=== PATIENT | female | born 1950 | race Caucasian/White ===

== ENCOUNTER 2017-02-28 22:40 | Inpatient (IN) | payer OTHER ==
[~2017-02-28] VITALS: Ht 162.6 cm; Wt 161.2 kg
--- NOTE | ~2017-02-28 | EKG ---
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
--- NOTE | ~2017-02-28 | EKG ---
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
--- NOTE | ~2017-02-28 | HC ---
[facility] [place] [address] CONSULTATION Name: CATALINO DAVIS Room #: 202-P ADM IN M.R.#: [id number] Admission: 03/01/17 Attend Phys: Mathew Calero MD Discharge: Date of : 46 Report #: [id number] THIS REPORT FOR: //name// [facility] DATE OF SERVICE: 03/03/2017 INFECTIOUS DISEASE CONSULTATION ATTENDING PHYSICIAN: Obey Harvey M.D. REASON FOR EVALUATION: Complicated urinary tract infection with multiple resistant Escherichia coli, including extended spectrum beta lactamase production. HISTORY OF PRESENT ILLNESS: Chart reviewed, the patient examined. This is a 66-year-old white female with disabilities with previous right below-knee amputation, and apparently, a necrotizing-type infection. She mentioned to have MRSA treated multiple times, various infections including urinary tract infection and had developed some difficulty, was evaluated and was noted to have pyuria. Culture with growth of Escherichia coli as well as Proteus mirabilis. The former was multiple resistant including ESBL, most susceptible to amikacin, gentamicin as well as imipenem, piperacillin, tazobactam, trimethoprim sulfamethoxazole and tetracycline. The Proteus was resistant to quinolones and trimethoprim sulfamethoxazole and tetracycline. It is notable she was actually admitted due to progressive dyspnea with hypoxemia. She was confirmed to have a nmh-WP-zvfrmpcyy [place] and was started empirically on ceftriaxone. ALLERGIES: MUSHROOMS, GERMAN INHIBITORS, SULFA and LINEZOLID. CURRENT MEDICATIONS: Include torsemide, hydralazine, ceftriaxone, isosorbide mononitrate, fentanyl, insulin, montelukast, lorazepam, aspirin, amlodipine, atorvastatin, carvedilol, ipratropium and albuterol inhaler, pantoprazole, levothyroxine, p.r.n. analgesics and antiemetics. PAST MEDICAL HISTORY: Diabetes mellitus, hypothyroidism, does have known vasculopathy, coronary artery disease, history of COPD and previous below-knee amputation on the right. SOCIAL HISTORY: Nonsmoker. No ethanol. FAMILY HISTORY: Noncontributory. REVIEW OF SYSTEMS: Denies significant gastrointestinal-related complaints. She has had some weight gain. [facility] [address] [place] [address] CONSULTATION Name: CATALINO DAVIS Room #: 202-P [facility].#: [id number] Admission: 03/01/17 Attend Phys: Mathew Calero MD Discharge: Date of : 46 Report #: [id number] PHYSICAL EXAMINATION: GENERAL: She is alert, cooperative, in mild distress. She is not encephalopathic. She appears to be reasonably well nourished. VITAL SIGNS: Temperature 98.6, pulse of 59, respirations 18 and blood pressure 131/63. SKIN: Warm, dry. No rashes. HEENT: Unremarkable. Nasal cannula oxygen in place. NECK: Supple. LUNGS: Diminished, otherwise clear breath sounds. HEART: Regular, distant. I do not appreciate a murmur. ABDOMEN: Soft, nontender and nondistended. EXTREMITIES: No cyanosis. A well-healed BKA stump. GENITOURINARY: Deferred. RECTAL: Deferred. LABORATORY DATA: Urine culture as noted above. White count 69.4, H and H 8.1 and 24.3 and platelets of 265,000. Electrolytes: Sodium 139, potassium 4.8, chloride 102, bicarbonate is 27, BUN and creatinine 46 and 1.5 and estimated GFR of 35. Urinalysis, 6-15 white cells and greater than 30 bacteria. ASSESSMENT AND PLAN: Complicated urinary tract infection. The patient has multiple infectious complications. We will adjust antimicrobial therapy with piperacillin and tazobactam based on susceptibilities and see how she does clinically, perhaps repeat the U/A in 48-72 hours, prefer course if possible. Dr. Ron to follow. <ELECTRONICALLY SIGNED> By: Peter Farrar MD 03/04/17 0756 1553 2314 Peter Farrar MD /nt
--- NOTE | ~2017-02-28 | CATHLAB ---
[facility] [address] [place] [address] INVASIVE PROCEDURE REPORT Name: SUSAN,CATALINO L Room #: 202-P [facility] IN [facility]#: [id number] Admission: 03/01/17 Attend Phys: Mathew Calero, Discharge: Date of : 46 Date of Service: 03/01/17 1721 Report #: [id number] THIS REPORT FOR: //name// CC: Obey Miller DATE OF SERVICE: 03/01/2017 PROCEDURE: Left heart coronary angiography. INDICATIONS: Myocardial infarction. DESCRIPTION OF PROCEDURE: The potential benefits and risks of the procedure were discussed at length with the patient who understood. Full written and informed consent was obtained. The patient was brought into the catheterization suite where her right groin was prepped and draped in a sterile fashion. She was sedated with intravenous Versed, 1% Xylocaine was used as local anesthetic. A 6-Kiswahili sheath was placed in the right femoral artery by the modified Seldinger technique. Left heart catheterization was performed with a 6-Kiswahili angled pigtail catheter. A single plain ventriculogram was performed in the MARY view. Pullback gradients were measured across the aortic valve. Selective coronary angiography was performed with a 6-Kiswahili left and right 4 cm Marilynn coronary catheter. All diagnostic catheters removed. Hand injection was performed to the right groin sheath with placement of a Mynx device upon removal of the sheath. The patient remained in excellent condition at the conclusion of the procedure with good right groin hemostasis and intact distal pulses. RESULTS: LEFT HEART HEMODYNAMICS: 1. Left ventricular systolic pressure of 140. 2. Left ventricular end diastolic pressure of 35. 3. Aortic valve, no gradient was present on pullback across the aortic valve, central aortic pressure of 140/70. ANGIOGRAPHY: LEFT VENTRICULOGRAM: Ventriculography demonstrated normal global left ventricular systolic function, possible mild apical hypokinesis. SELECTIVE CORONARY ANGIOGRAPHY: 1. Left main: Left main was large in caliber and normal. 2. Left anterior descending: Left anterior descending extended to the inferoapex. There was a moderate 50% proximal LAD stenosis, mild to modest diffuse plaquing throughout the majority of the LAD, which extended to the inferoapex. The LAD gave rise to a proximal diagonal branch. This vessel exhibited a 50% proximal stenosis. This vessel was relatively small in caliber. 3. The circumflex was large and dominant. The circumflex gave rise to multiple [facility] [address] [place] [address] INVASIVE PROCEDURE REPORT Name: CATALINO DAVIS Room #: 202-P [facility] IN ..#: [id number] Admission: 03/01/17 Attend Phys: Mathew Calero, Discharge: Date of : 46 Date of Service: 03/01/17 1721 Report #: [id number] distally arising marginal branches. The first marginal branch, however, exhibited a subtotal narrowing. There were faint left to left collaterals to this distal vessel. 4. The right coronary was moderate in size and nondominant and exhibited a 70% midvessel stenosis, vessel was very small in caliber beyond the stensis. SUMMARY: 1. Mild left ventricular dysfunction, EF 45-50%. 2. Normal left main. 3. Moderate left anterior descending disease. 4. The circumflex was dominant. The first marginal branch was occluded and filled by apot-sg-zfjz collateralization. 5. The right coronary was small, nondominant and diffusely diseased. Based on this study, continued pharmacologic therapy and aggressive risk factor modification is recommended. <ELECTRONICALLY SIGNED> By: Renato Novoa MD, FACC 03/04/17 0848 1721 2241 Renato Novoa MD, FACC /nt
--- NOTE | ~2017-02-28 | 2DMMODE ---
[facility] [address] [place] [address] 2 D/M-MODE ECHOCARDIOGRAM Name: CATALINO DAVIS Room #: 202-P ADM IN M.R.#: [id number] Admission: 03/01/17 Attend Phys: Obey Aleman Discharge: Date of : 46 Date of Service: 03/01/17 1221 Report #: [id number] THIS REPORT FOR: //name// APPROVED REPORT Study performed: 03/01/2017 08:32:00 EXAM: Comprehensive 2D, Doppler, and color-flow Echocardiogram Patient Location: Bedside Room #: 202 Status: routine Other Information Study Quality: Poor Indications Dyspnea Hypertension/HDD Echo Enhancing Agent Indication: Endocardial border delineation Agent(s) / Amount(s) Used: Definity 2 cc 2D Dimensions LVEF(%): 58.87 (>50%) IVSd: 14.58 (7-11mm) LVOT Diam: 20.85 (18-24mm) LVDd: 51.38 mm PWd: 14.43 (7-11mm) Ascending Ao: 30.38 (22-36mm) LVDs: 35.27 (25-40mm) Aortic Root: 34.18 mm Childs's LVEF: 58.87 % Aortic Valve LVOT Max P.08 mmHg LVOT Mean P.73 mmHg LVOT Max V: 1.01 m/s LVOT Mean V: 0.80 m/s LVOT V1 VTI: 23.14 cm SV (LVOT): 78.94 mL Mitral Valve E/A Ratio: 0.9 MV Decel. Time: 270.21 ms MV E Max Ayad.: 1.30 m/s MV A Ayad.: 1.39 m/s [facility] [place] [address] [address] 2 D/M-MODE ECHOCARDIOGRAM Name: CATALINO DAVIS Abdelrahman Room #: 202-P [facility] IN [facility]#: [id number] Admission: 03/01/17 Attend Phys: Obey Aleman Discharge: Date of : 46 Date of Service: 03/01/17 1221 Report #: [id number] MV PHT: 78.36 ms IVRT: 147.64 ms Pulmonary Valve PV Peak Ayad.: 1.14 m/s PV Peak Gr.: 5.19 mmHg Tricuspid Valve TR Peak Ayad.: 2.56 m/s TR Peak Gr.: 26.29 mmHg Left Ventricle The left ventricle is normal size. Mild concentric left ventricular hypertrophy. The left ventricular systolic function is normal. The left ventricular ejection fraction is within the normal range. LVEF is 55-60%. Grade I - abnormal relaxation pattern. Right Ventricle The right ventricle is normal size. The right ventricular systolic function is normal. Atria The left atrium size is normal. The right atrium size is normal. Aortic Valve The aortic valve is not well visualized. Aortic valve is calcified. Trace aortic regurgitation. By visual assessment there appears to be mild Aortic stenosis. Mitral Valve The mitral valve is normal in structure. Trace to mild mitral regurgitation. No evidence of mitral valve stenosis. Tricuspid Valve The tricuspid valve is normal in structure. There is trace tricuspid regurgitation. The right atrial pressure is estimated at 25 mmHg. Plus the right atrial pressure. Pulmonic Valve The pulmonary valve is normal in structure. Trace pulmonic regurgitation. Great Vessels The aortic root is normal in size. IVC is not well visualized. [facility] [place] [address] 2 D/M-MODE ECHOCARDIOGRAM Name: CATALINO DAVIS Room #: 202-P [facility] IN M.R.#: [id number] Admission: 03/01/17 Attend Phys: Obey Aleman Discharge: Date of : 46 Date of Service: 03/01/17 1221 Report #: [id number] Pericardium There is no pericardial effusion. <Conclusion> The left ventricle is normal size. LVEF is 55-60%. The aortic valve is not well visualized. Aortic valve is calcified. Trace aortic regurgitation. The mitral valve is normal in structure. Trace to mild mitral regurgitation. The tricuspid valve is normal in structure. There is trace tricuspid regurgitation. The right atrial pressure is estimated at 25 mmHg. Plus the right atrial pressure. The pulmonary valve is normal in structure. Trace pulmonic regurgitation. <ELECTRONICALLY SIGNED> By: Agustin Sotelo MD 03/01/17 1221 1221 122 Agustin Sotelo MD /INF
[2017-02-28 22:41] VITALS: BP 190/94
[2017-02-28 22:58] LABS: ABG SAMPLE TYPE ARTERIAL; BE(vivo) 0.4 mmol/L (-2 to +3); HCO3 24.6 mmol/L (22.0-26.0); LACTATE 1.41 mmol/L (0.5-2.0); O2(CT) 14.5 mL/dL (15.0-23.0); O2Hb 95.6 % (92.0-98.0); PCO2 38.3 mmHg (35.0-45.0); PO2 77.7 mmHg (80.0-100.0); STICK SITE R.RADIAL; pH 7.426 (7.360-7.450); sO2 95.8 % (92.0-98.0); tCO2 25.8 mmol/L (24.0-30.0)
[2017-02-28 23:00] LABS: HEMATOCRIT 31.5 % (37.0-47.0); HEMOGLOBIN 10.1 gm/dL (12.0-15.0); MCH 29.1 pg (26.0-34.0); MCHC 32.2 g/dL (28.0-37.0); MCV 90.5 fL (80.0-100.0); PLATELET COUNT 319 thou/uL (150-400); RBC 3.48 mil/uL (4.20-5.00); RDW 15.3 % (10.5-14.5); WBC 17.1 thou/uL (4.0-11.0)
[2017-02-28 23:08] LABS: CALCIUM 8.2 mg/dL (8.5-10.1); CREATININE 1.5 mg/dL (0.6-1.0); POTASSIUM 5.2 mmol/L (3.5-5.1)
[2017-02-28 23:13] LABS: MANUAL DIFF YES
[2017-02-28 23:20] LABS: TROPONIN-I 0.17 ng/mL (<0.04-0.07)
[2017-02-28] MEDS ORDERED: OXYCODONE HCL10 MG PO (23:38)
[2017-02-28] MEDS ORDERED: ONDANSETRON HCL4 M2 PO (23:38)
[2017-02-28] MEDS ORDERED: NYAMYC15 GM TOP (23:38)
[2017-02-28] MEDS ORDERED: BUTALBIT-ACETA1 EACH PO (23:38)
[2017-02-28] MEDS ORDERED: LANTUS SUBQ (23:39)
[2017-02-28] MEDS ORDERED: LASIX 20 MG TAB20 MG PO (23:39)
[2017-02-28] MEDS ORDERED: NOVOLOG100 UNIT/1 SUBQ (23:39)
[2017-02-28] MEDS ORDERED: FENTANYL PA25 MCG/HR TRANSDERM (23:39)
[2017-02-28] MEDS ORDERED: LEVOTHYROXINE0.2 M1 PO (23:39)
[2017-02-28] MEDS ORDERED: ATORVASTATIN CA40 MG PO (23:40)
[2017-02-28] MEDS ORDERED: AMLODIPINE BESY10 MG PO (23:40)
[2017-02-28] MEDS ORDERED: CARVEDILOL12.5 MG PO (23:40)
[2017-02-28] MEDS ORDERED: PANTOPRAZOLE SO40 M1 PO (23:40)
[2017-02-28] MEDS ORDERED: HYDRALAZINE 5050 MG PO (23:40)
[2017-02-28] MEDS ORDERED: ATIVAN0.5 MG PO (23:40)
[2017-02-28] MEDS ORDERED: ZANAFLEX4 MG PO (23:41)
[2017-02-28] MEDS ORDERED: SINGULAIR 10 MG10 M1 PO (23:41)
[2017-02-28] MEDS ORDERED: MIRALAX17 GM PO (23:42)
[2017-02-28] MEDS ORDERED: ASPIR 8181 MG PO (23:43)
[2017-02-28] MEDS ORDERED: TYLENOL325 MG PO (23:43)
[2017-02-28 23:44] LABS: METAMYELOCYTES 1 %; TOTAL CELL COUNT 100
[2017-03-01] VITALS (10 sets, daily range): BP systolic 144–180; BP diastolic 61–81
[2017-03-01 06:13] LABS: CALCIUM 7.9 mg/dL (8.5-10.1); CREATININE 1.5 mg/dL (0.6-1.0); POTASSIUM 4.9 mmol/L (3.5-5.1)
[2017-03-01 06:19] LABS: CHOLESTEROL 144 mg/dL (<200); HDL CHOLESTEROL 46 mg/dL (>40); LDL CHOLESTEROL 75 mg/dL (<100); TC:HDL 3.1 Ratio (Not establshd); TRIGLYCERIDE 117 mg/dL (<150); VLDL 23 mg/dL (<40)
[2017-03-01 06:22] LABS: SERUM ASSESSMENT Clear
[2017-03-01 10:47] LABS: URINE BILIRUBIN NEGATIVE (Negative); URINE BLOOD NEGATIVE (Negative); URINE COLOR YELLOW; URINE GLUCOSE-RANDOM* NEGATIVE (Negative); URINE KETONES NEGATIVE (Negative); URINE LEUKOCYTES-REFLEX 1+ (Negative); URINE PROTEIN (DIPSTICK) 2+ (Negative); URINE UROBILINOGEN 0.2 E.U./dl (0.2-1.0)
[2017-03-01 13:08] LABS: SQUAMOUS 0-3 Few /LPF (0-3); URINE RBC None Seen /HPF (0-2); URINE WBC-REFLEX 6-15 Few /HPF (0-5)
[2017-03-01 13:09] LABS: CASTS None Seen /LPF (None Seen); CRYSTALS None Seen /LPF (None Seen)
[2017-03-02 03:19] LABS: GLYCOHEMOGLOBIN (HGB A1C) 6.3 % (4.8-5.6)
[2017-03-02 04:30] VITALS: BP 152/65
[2017-03-02 05:51] LABS: HEMATOCRIT 26.2 % (37.0-47.0); HEMOGLOBIN 8.6 gm/dL (12.0-15.0); MCH 29.6 pg (26.0-34.0); MCHC 32.9 g/dL (28.0-37.0); RBC 2.92 mil/uL (4.20-5.00); RDW 15.3 % (10.5-14.5); WBC 10.4 thou/uL (4.0-11.0)
[2017-03-02 06:00] LABS: CALCIUM 7.7 mg/dL (8.5-10.1); CREATININE 1.5 mg/dL (0.6-1.0); POTASSIUM 4.4 mmol/L (3.5-5.1)
[2017-03-02 08:29] VITALS: BP 168/81
[2017-03-02 12:10] VITALS: BP 158/70
[2017-03-02 16:12] VITALS: BP 138/65
[2017-03-02 19:11] VITALS: BP 152/72
[2017-03-03 02:57] VITALS: BP 142/62
[2017-03-03 03:02] LABS: HEMATOCRIT 24.3 % (37.0-47.0); HEMOGLOBIN 8.1 gm/dL (12.0-15.0); MCH 29.7 pg (26.0-34.0); MCHC 33.2 g/dL (28.0-37.0); MCV 89.5 fL (80.0-100.0); RBC 2.71 mil/uL (4.20-5.00); RDW 14.8 % (10.5-14.5); WBC 9.4 thou/uL (4.0-11.0)
[2017-03-03 03:15] LABS: CALCIUM 7.5 mg/dL (8.5-10.1); CREATININE 1.5 mg/dL (0.6-1.0); POTASSIUM 4.8 mmol/L (3.5-5.1)
[2017-03-03 07:50] VITALS: BP 161/61
[2017-03-03 11:25] VITALS: BP 131/63
[2017-03-03 15:30] VITALS: BP 150/65
[2017-03-03 19:47] VITALS: BP 147/61
[2017-03-04 04:12] LABS: ABSOLUTE NEUTROPHILS 6.1 thou/uL (1.4-8.2); BASOPHILS 0.9 % (0.0-2.0); EOSINOPHILS 8.3 % (0.0-3.0); HEMATOCRIT 25.1 % (37.0-47.0); HEMOGLOBIN 8.3 gm/dL (12.0-15.0); LYMPHOCYTES 12.2 % (24.0-44.0); MANUAL DIFF NO; MCH 29.6 pg (26.0-34.0); MCHC 33.1 g/dL (28.0-37.0); MCV 89.7 fL (80.0-100.0); MONOCYTES 8.5 % (1.0-8.0); PLATELET COUNT 283 thou/uL (150-400); POLYS 70.1 % (36.0-66.0); RDW 14.9 % (10.5-14.5); WBC 8.7 thou/uL (4.0-11.0)
[2017-03-04 04:23] LABS: CALCIUM 7.6 mg/dL (8.5-10.1); CREATININE 1.6 mg/dL (0.6-1.0); POTASSIUM 4.5 mmol/L (3.5-5.1)
[2017-03-04 05:44] VITALS: BP 154/59
[2017-03-04] MEDS ORDERED: IMDUR 60 MG TAB60 M1 PO (09:29)
[2017-03-04] MEDS ORDERED: HUMALOG100 UNIT/1 SUBQ (09:29)
[2017-03-04] MEDS ORDERED: HYDRALAZINE 2525 MG PO (09:29)
[2017-03-04] MEDS ORDERED: LANTUS100 UNIT/M SUBQ (09:29)
[2017-03-04] MEDS ORDERED: TORSEMIDE20 MG PO (09:29)
[2017-03-04] MEDS ORDERED: CARVEDILOL25 MG PO (09:29)
[2017-03-04 14:55] LABS: URINE BILIRUBIN NEGATIVE (Negative); URINE BLOOD NEGATIVE (Negative); URINE COLOR YELLOW; URINE GLUCOSE-RANDOM* NEGATIVE (Negative); URINE KETONES NEGATIVE (Negative); URINE LEUKOCYTES-REFLEX NEGATIVE (Negative); URINE PROTEIN (DIPSTICK) 2+ (Negative); URINE SPECIFIC GRAVITY 1.015 (1.003-1.035); URINE UROBILINOGEN 0.2 E.U./dl (0.2-1.0)
== END 2017-03-04 16:19 | DRG 871 ==
LOC: ER 22:40 → EROBS 03-01 00:04 → 2N 03-01 00:04
PROVIDERS: Emergency Medicine; Hospitalist; Internal Medicine Endocrinology, Diabetes & Metabolism; Nurse Practitioner Acute Care; Specialist
DX: A41.9 Sepsis, unspecified organism (principal); I21.4 Non-ST elevation (NSTEMI) myocardial infarction; I50.33 Acute on chronic diastolic (congestive) heart failure; N39.0 Urinary tract infection, site not specified; I13.0 Hypertensive heart and chronic kidney disease with heart failure and stage 1 through stage 4 chronic kidney disease, or unspecified chronic kidney disease; Z68.44 Body mass index [BMI] 60.0-69.9, adult; E03.9 Hypothyroidism, unspecified; N18.3 Chronic kidney disease, stage 3 (moderate); I87.8 Other specified disorders of veins; E66.01 Morbid (severe) obesity due to excess calories; J44.9 Chronic obstructive pulmonary disease, unspecified; E11.51 Type 2 diabetes mellitus with diabetic peripheral angiopathy without gangrene; E78.5 Hyperlipidemia, unspecified; G47.00 Insomnia, unspecified; G47.33 Obstructive sleep apnea (adult) (pediatric); G89.4 Chronic pain syndrome; I25.10 Atherosclerotic heart disease of native coronary artery without angina pectoris; F41.8 Other specified anxiety disorders; E11.22 Type 2 diabetes mellitus with diabetic chronic kidney disease; Z79.891 Long term (current) use of opiate analgesic; Z79.82 Long term (current) use of aspirin; Z79.899 Other long term (current) drug therapy; Z88.2 Allergy status to sulfonamides; Z91.018 Allergy to other foods; Z88.8 Allergy status to other drugs, medicaments and biological substances; Z89.511 Acquired absence of right leg below knee; Z98.61 Coronary angioplasty status; Z89.422 Acquired absence of other left toe(s); Z80.0 Family history of malignant neoplasm of digestive organs
CPT/HCPCS: 10081

== ENCOUNTER 2017-03-17 23:12 | Inpatient (IN) | payer OTHER ==
[~2017-03-17] VITALS: Ht 162.6 cm; Wt 162.8 kg
--- NOTE | ~2017-03-17 | EKG ---
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
--- NOTE | ~2017-03-17 | EKG ---
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 03/24/17 1254 11 11 Renato Novoa MD, [facility] /EPI
[~2017-03-17 23:12] MED LIST: AMLODIPINE BESY10 MG PO; ASPIR 8181 MG PO; ATIVAN0.5 MG PO; ATORVASTATIN CA40 MG PO; BUTALBIT-ACETA1 EACH PO; CARVEDILOL12.5 MG PO; CARVEDILOL25 MG PO; FENTANYL PA25 MCG/HR TRANSDERM; HUMALOG100 UNIT/1 SUBQ; HYDRALAZINE 2525 MG PO; HYDRALAZINE 5050 MG PO; IMDUR 60 MG TAB60 M1 PO; LANTUS SUBQ; LANTUS100 UNIT/M SUBQ; LASIX 20 MG TAB20 MG PO; LEVOTHYROXINE0.2 M1 PO; MIRALAX17 GM PO; NOVOLOG100 UNIT/1 SUBQ; NYAMYC15 GM TOP; ONDANSETRON HCL4 M2 PO; OXYCODONE HCL10 MG PO; PANTOPRAZOLE SO40 M1 PO; SINGULAIR 10 MG10 M1 PO; TORSEMIDE20 MG PO; TYLENOL325 MG PO; ZANAFLEX4 MG PO
[2017-03-17 23:28] LABS: HEMATOCRIT 32.3 % (37.0-47.0); HEMOGLOBIN 10.3 gm/dL (12.0-15.0); MCH 28.8 pg (26.0-34.0); MCV 90.1 fL (80.0-100.0); PLATELET COUNT 365 thou/uL (150-400); RBC 3.58 mil/uL (4.20-5.00); RDW 15.7 % (10.5-14.5); WBC 13.7 thou/uL (4.0-11.0)
[2017-03-17] MEDS ORDERED: LANTUS100 UNIT/M SUBQ (23:33)
[2017-03-17] MEDS ORDERED: SINGULAIR 10 MG10 M1 PO (23:36)
[2017-03-17 23:38] LABS: CALCIUM 7.2 mg/dL (8.5-10.1); POTASSIUM 5.1 mmol/L (3.5-5.1)
[2017-03-17] MEDS ORDERED: DOXYCYCLINE 10100 M1 PO (23:38)
[2017-03-17] MEDS ORDERED: ATIVAN0.5 MG PO (23:38)
[2017-03-17] MEDS ORDERED: NASAL SPRAY30 ML NS (23:39)
[2017-03-17] MEDS ORDERED: FENTANYL PA25 MCG/HR TOP (23:40)
[2017-03-17 23:42] LABS: ABG SAMPLE TYPE ARTERIAL; BE(vivo) -0.2 mmol/L (-2 to +3); HCO3 24.7 mmol/L (22.0-26.0); LACTATE 3.25 mmol/L (0.5-2.0); O2(CT) 15.7 mL/dL (15.0-23.0); O2Hb 96.8 % (92.0-98.0); PCO2 41.5 mmHg (35.0-45.0); PO2 101.5 mmHg (80.0-100.0); Pressure Support 14 cm H20; STICK SITE L.RADIAL; pH 7.393 (7.360-7.450); sO2 97.6 % (92.0-98.0)
[2017-03-17] MEDS ORDERED: ROXICODONE5 M2 PO (23:42)
[2017-03-17 23:50] LABS: MANUAL DIFF YES; TROPONIN-I 0.05 ng/mL (<0.04-0.07)
[2017-03-18 00:26] LABS: ABSOLUTE NEUTROPHILS 11.6 thou/uL (1.4-8.2); ANISOCYTOSIS SLIGHT; MACROCYTES SLIGHT; TOTAL CELL COUNT 100
[2017-03-18 01:46] VITALS: BP 131/58
[2017-03-18 03:07] VITALS: BP 142/52
[2017-03-18 05:45] LABS: URINE BILIRUBIN NEGATIVE (Negative); URINE BLOOD NEGATIVE (Negative); URINE COLOR YELLOW; URINE GLUCOSE-RANDOM* NEGATIVE (Negative); URINE KETONES NEGATIVE (Negative); URINE LEUKOCYTES-REFLEX NEGATIVE (Negative); URINE PROTEIN (DIPSTICK) 1+ (Negative); URINE UROBILINOGEN 0.2 E.U./dl (0.2-1.0)
[2017-03-18 05:53] LABS: SQUAMOUS 0-3 Few /LPF (0-3)
[2017-03-18 05:54] LABS: CASTS None Seen /LPF (None Seen); CRYSTALS None Seen /LPF (None Seen); URINE RBC 0-2 Rare /HPF (0-2); URINE WBC-REFLEX None Seen /HPF (0-5)
[2017-03-18 07:54] VITALS: BP 109/57
[2017-03-18 10:58] VITALS: BP 140/63
[2017-03-18 15:28] VITALS: BP 146/64
[2017-03-18 19:16] VITALS: BP 175/61
[2017-03-19 00:16] VITALS: BP 115/42
[2017-03-19 04:19] VITALS: BP 149/61
[2017-03-19 06:24] LABS: ABSOLUTE NEUTROPHILS 6.2 thou/uL (1.4-8.2); HEMATOCRIT 25.6 % (37.0-47.0); HEMOGLOBIN 8.5 gm/dL (12.0-15.0); LYMPHOCYTES 16.2 % (24.0-44.0); MCH 29.8 pg (26.0-34.0); MCHC 33.4 g/dL (28.0-37.0); MCV 89.3 fL (80.0-100.0); MONOCYTES 6.5 % (1.0-8.0); POLYS 69.3 % (36.0-66.0); RBC 2.87 mil/uL (4.20-5.00); RDW 15.2 % (10.5-14.5)
[2017-03-19 06:28] LABS: PLATELET COUNT 264 thou/uL (150-400)
[2017-03-19 06:29] LABS: MANUAL DIFF NO
[2017-03-19 06:36] LABS: CALCIUM 6.8 mg/dL (8.5-10.1); CREATININE 1.7 mg/dL (0.6-1.0); POTASSIUM 4.4 mmol/L (3.5-5.1)
[2017-03-19 07:50] VITALS: BP 128/48
[2017-03-19 11:12] VITALS: BP 132/43
[2017-03-19 15:58] VITALS: BP 135/52
[2017-03-19 19:03] VITALS: BP 153/67
[2017-03-20 04:28] VITALS: BP 153/74
[2017-03-20 06:21] LABS: HEMATOCRIT 25.4 % (37.0-47.0); HEMOGLOBIN 8.3 gm/dL (12.0-15.0); MCH 29.3 pg (26.0-34.0); MCHC 32.8 g/dL (28.0-37.0); MCV 89.4 fL (80.0-100.0); PLATELET COUNT 246 thou/uL (150-400); RBC 2.84 mil/uL (4.20-5.00); RDW 14.9 % (10.5-14.5); WBC 6.6 thou/uL (4.0-11.0)
[2017-03-20 06:23] LABS: MANUAL DIFF YES
[2017-03-20 06:38] LABS: CALCIUM 7.2 mg/dL (8.5-10.1); CREATININE 1.6 mg/dL (0.6-1.0); POTASSIUM 4.7 mmol/L (3.5-5.1)
[2017-03-20 07:14] LABS: ABSOLUTE NEUTROPHILS 6.1 thou/uL (1.4-8.2); TOTAL CELL COUNT 100
[2017-03-20 07:15] LABS: ANISOCYTOSIS SLIGHT
[2017-03-20 09:00] VITALS: BP 145/62
[2017-03-20 11:37] VITALS: BP 164/63
[2017-03-20 15:47] VITALS: BP 137/66
[2017-03-20 20:15] VITALS: BP 122/69
[2017-03-21 05:35] VITALS: BP 152/67
[2017-03-21 06:01] LABS: CALCIUM 6.7 mg/dL (8.5-10.1); CREATININE 1.8 mg/dL (0.6-1.0); POTASSIUM 4.8 mmol/L (3.5-5.1)
[2017-03-21 08:40] VITALS: BP 159/71
[2017-03-21 13:40] VITALS: BP 153/71
[2017-03-21 18:50] VITALS: BP 141/65
[2017-03-21 19:20] VITALS: BP 147/68
[2017-03-22 04:58] VITALS: BP 147/70
[2017-03-22 06:11] LABS: HEMATOCRIT 23.7 % (37.0-47.0); MCH 29.7 pg (26.0-34.0); MCHC 33.6 g/dL (28.0-37.0); MCV 88.6 fL (80.0-100.0); PLATELET COUNT 221 thou/uL (150-400); RBC 2.68 mil/uL (4.20-5.00); RDW 15.2 % (10.5-14.5); WBC 7.6 thou/uL (4.0-11.0)
[2017-03-22 06:13] LABS: MANUAL DIFF YES
[2017-03-22 06:25] LABS: CALCIUM 6.9 mg/dL (8.5-10.1); CREATININE 1.9 mg/dL (0.6-1.0); POTASSIUM 4.6 mmol/L (3.5-5.1)
[2017-03-22 07:24] LABS: ABSOLUTE NEUTROPHILS 6.8 thou/uL (1.4-8.2); METAMYELOCYTES 1 %; TOTAL CELL COUNT 100
[2017-03-22 07:25] LABS: ANISOCYTOSIS SLIGHT
[2017-03-22 08:09] VITALS: BP 156/74
[2017-03-22 12:11] VITALS: BP 132/63
[2017-03-22 15:06] LABS: c-ANCA <1:20 titer (Neg:<1:20); p-ANCA <1:20 titer (Neg:<1:20)
[2017-03-22 15:42] VITALS: BP 153/58
[2017-03-23 04:00] VITALS: BP 150/73
[2017-03-23 05:53] LABS: HEMOGLOBIN 8.2 gm/dL (12.0-15.0); MCH 29.2 pg (26.0-34.0); MCHC 32.8 g/dL (28.0-37.0); PLATELET COUNT 210 thou/uL (150-400); RBC 2.81 mil/uL (4.20-5.00); RDW 15.3 % (10.5-14.5); WBC 8.1 thou/uL (4.0-11.0)
[2017-03-23 06:01] LABS: MANUAL DIFF YES
[2017-03-23 06:23] LABS: CALCIUM 6.7 mg/dL (8.5-10.1); POTASSIUM 4.8 mmol/L (3.5-5.1)
[2017-03-23 07:53] LABS: ANISOCYTOSIS 1+; TOTAL CELL COUNT 100
[2017-03-23 07:54] LABS: POLYCHROMASIA OCCASIONAL
[2017-03-23 15:32] VITALS: BP 145/64
[2017-03-23 20:13] VITALS: BP 146/49
[2017-03-24 04:56] LABS: ABSOLUTE RETIC COUNT 0.0549 10^6/uL; HEMATOCRIT 25.5 % (37.0-47.0); HEMOGLOBIN 8.4 gm/dL (12.0-15.0); MCH 29.3 pg (26.0-34.0); MCV 88.8 fL (80.0-100.0); OBSERVED RETIC COUNT 1.91 % (0.6-2.6); PLATELET COUNT 218 thou/uL (150-400); RBC 2.87 mil/uL (4.20-5.00); RDW 15.2 % (10.5-14.5); WBC 8.9 thou/uL (4.0-11.0)
[2017-03-24 04:58] LABS: MAGNESIUM 1.9 mg/dL (1.8-2.4)
[2017-03-24 05:00] VITALS: BP 167/67
[2017-03-24 05:26] LABS: MANUAL DIFF YES
[2017-03-24 07:05] LABS: ABSOLUTE NEUTROPHILS 8.2 thou/uL (1.4-8.2); PLATELET ESTIMATE NORMAL; TOTAL CELL COUNT 100
[2017-03-24 07:28] VITALS: BP 175/61
[2017-03-24 16:00] VITALS: BP 155/60; BP 90/48
[2017-03-24 20:50] VITALS: BP 170/68
[2017-03-25 06:30] VITALS: BP 166/68
[2017-03-25 08:57] VITALS: BP 148/57
[2017-03-25] MEDS ORDERED: AUGMENTIN 500-1 EACH PO (09:34)
== END 2017-03-25 11:42 | DRG 291 ==
LOC: ER 23:12 → 4W 03-18 01:07 → EROBS 03-18 01:07 → 4W 03-18 01:45 → 4S 03-22 14:47
PROVIDERS: Emergency Medicine; Family Medicine; Internal Medicine Endocrinology, Diabetes & Metabolism; Internal Medicine Pulmonary Disease; Nurse Practitioner Family
DX: I13.0 Hypertensive heart and chronic kidney disease with heart failure and stage 1 through stage 4 chronic kidney disease, or unspecified chronic kidney disease (principal); J96.21 Acute and chronic respiratory failure with hypoxia; I50.33 Acute on chronic diastolic (congestive) heart failure; N17.9 Acute kidney failure, unspecified; L03.115 Cellulitis of right lower limb; Z68.44 Body mass index [BMI] 60.0-69.9, adult; E11.51 Type 2 diabetes mellitus with diabetic peripheral angiopathy without gangrene; E78.5 Hyperlipidemia, unspecified; E03.9 Hypothyroidism, unspecified; F32.9 Major depressive disorder, single episode, unspecified; F41.9 Anxiety disorder, unspecified; G47.00 Insomnia, unspecified; E66.01 Morbid (severe) obesity due to excess calories; I25.10 Atherosclerotic heart disease of native coronary artery without angina pectoris; E11.40 Type 2 diabetes mellitus with diabetic neuropathy, unspecified; E11.22 Type 2 diabetes mellitus with diabetic chronic kidney disease; N18.3 Chronic kidney disease, stage 3 (moderate); G43.809 Other migraine, not intractable, without status migrainosus; D64.9 Anemia, unspecified; G47.33 Obstructive sleep apnea (adult) (pediatric); K59.00 Constipation, unspecified; G89.4 Chronic pain syndrome; D72.829 Elevated white blood cell count, unspecified; I87.8 Other specified disorders of veins; Z89.422 Acquired absence of other left toe(s); Z79.82 Long term (current) use of aspirin; Z89.511 Acquired absence of right leg below knee; Z98.62 Peripheral vascular angioplasty status; Z88.2 Allergy status to sulfonamides; Z88.8 Allergy status to other drugs, medicaments and biological substances; Z91.018 Allergy to other foods; Z80.0 Family history of malignant neoplasm of digestive organs; Z80.8 Family history of malignant neoplasm of other organs or systems; Z79.899 Other long term (current) drug therapy; Z99.81 Dependence on supplemental oxygen
CPT/HCPCS: 10045; 10100

== ENCOUNTER 2017-04-11 19:16 | Inpatient (IN) | payer OTHER ==
[~2017-04-11] VITALS: Ht 165.1 cm; Wt 0.9 kg
--- NOTE | ~2017-04-11 | HC ---
[facility] [place] [address] CONSULTATION Name: CATALINO DAVIS Abdelrahman Room #: 304-P [facility] IN M.R.#: [id number] Admission: 04/11/17 Attend Phys: Asher Goodson DO Discharge: 04/16/17 Date of : 46 Report #: [id number] THIS REPORT FOR: //name// CC: FAM unknown Asher MCCALL MD REASON FOR CONSULTATION: The patient is a 66-year-old woman with nausea, vomiting and also abdominal pain. HISTORY OF PRESENT ILLNESS: This patient has a history of multiple medical problems including chronic diabetes, chronic hypoxia, obstructive sleep apnea and recent, several weeks ago chest pain with a non-ST elevated myocardial infarction. She is currently a resident of a nursing facility. In addition, she has chronic pain. She has had amputations of toes on the left and below the amputation on right. She was transferred to [facility] with nausea and vomiting. She reports that she intermittently has had trouble with nausea and vomiting. She has never had any previous evaluation. However, she reports that yesterday, she vomited several times. Unfortunately, she cannot be very specific with regards to what she brought up or volume. She said it was not bloody. She then developed abdominal pain after she said everyone started pushing on her belly because she was "constipated." Here at [facility], she underwent evaluation which included a CT scan of the head which did not reveal any acute processes. She had a CT scan of the abdomen and pelvis without contrast. Gallstones were noted within the gallbladder. The pancreas was atrophic. There was stool in the rectosigmoid area suggestive of constipation. No acute changes were seen. In addition, a portable chest x-ray revealed increasing atelectasis. She does take an aspirin daily, otherwise does not use nonsteroidals per her report. She does take pain medicines multiple times daily and has been using them chronically. Interestingly, she said she wants to change doctors because she thinks she is getting too much pain medicines. PAST MEDICAL HISTORY: Coronary artery disease with previous non-ST elevation myocardial infarction, longstanding diabetes, peripheral vascular disease with venous insufficiency. She has the diabetes. She is super obese. She had elevated lipids and hypothyroidism. She has been treated for depression and anxiety. She has sleep apnea. Also, she has chronic pain. She has peripheral vascular disease, high blood pressure, diastolic heart failure, rheumatoid arthritis as a child. She has had problems with esophagitis. She has had urinary incontinence as well. PAST SURGICAL HISTORY: Thyroid surgery, toe amputations, below the knee amputation. ALLERGIES: She does not know her allergies, listed are GERMAN INHIBITORS, ADHESIVE [facility] [address] [place] [address] CONSULTATION Name: SUSANCATALINO Room #: 304-P [facility] IN M.R.#: [id number] Admission: 04/11/17 Attend Phys: Asher Goodson DO Discharge: 04/16/17 Date of : 46 Report #: [id number] TAPE, ZYVOX, MUSHROOM, SHIITAKE MUSHROOMS, and SULFA. MEDICATIONS: Home medicines include aspirin 81 mg daily, Coreg 25 mg daily, doxycycline 100 mg twice daily, fentanyl patch 25 mcg every 3 days, glucagon as needed, hydralazine 25 mg t.i.d., NovoLog insulin, Lantus insulin, isosorbide mononitrate 60 mg daily, levothyroxine 200 mcg daily, lorazepam 0.5 mg twice daily, Singulair 10 mg at bedtime, oxycodone IR 10 mg daily, oxycodone 10 mg every 6 hours as needed, oxymetazoline nasal spray, pantoprazole 40 mg daily, torsemide 40 mg daily. FAMILY HISTORY: Both parents had colon cancer. The patient herself has had colonoscopies, last about 3-4 years ago. She thinks she had diverticular disease. SOCIAL HISTORY: Lives in a nursing facility. She quit smoking when she was a freshman in college, does not consume alcohol. REVIEW OF SYSTEMS: GENERAL: She thinks she has had some fever recently and no change in weight. CENTRAL NERVOUS SYSTEM: No focal weakness, numbness, loss of consciousness, seizures or strokes. ENT: No change in vision or hearing or sores in the mouth. PULMONARY: Chronic lung disease and obstructive sleep apnea. No history of tuberculosis. Atelectasis on chest x-ray. CARDIOVASCULAR: Diastolic heart failure and coronary artery disease with previous myocardial infarction. GASTROINTESTINAL: Nausea, vomiting, abdominal pain, constipation and reflux esophagitis. GENITOURINARY: Without dysuria, pyuria, kidney stones, contracture or infection. She does have some urinary incontinence. GYNECOLOGIC: No breast problems or vaginal discharges. MUSCULOSKELETAL: Below the amputation on the right, peripheral vascular disease, and chronic pain. SKIN: She has had rashes in the past. HEMATOLOGIC: No bleeding, bruising, or malignancy. ENDOCRINE: She does have diabetes and has had thyroid removed. PSYCHIATRIC: She has been treated for depression and anxiety, and has had suicidal ideations in the past according to the old records. PHYSICAL EXAMINATION: GENERAL: The patient is a morbidly obese woman who is awake, alert and oriented, in no acute distress. VITAL SIGNS: Blood pressure 178/71, pulse of 89. HEENT: Anicteric. Pupils equal and round. Oropharynx clear. NECK: Supple. CHEST: Clear. [facility] [address] [place] [address] CONSULTATION Name: CATALINO DAVIS Room #: 304-P [facility] IN .R.#: [id number] Admission: 04/11/17 Attend Phys: Asher Goodson DO Discharge: 04/16/17 Date of : 46 Report #: [id number] HEART: Regular rate and rhythm, normal S1 and normal S2. ABDOMEN: Morbidly obese, normal bowel sounds, soft, nontender, without hepatosplenomegaly or masses. RECTAL: Not done. EXTREMITIES: Without cyanosis, clubbing, edema. Right below the knee amputation and changes of chronic vascular insufficiency in the left lower extremity. LABORATORY DATA: White count 8.3, hemoglobin 12.5, platelet count of 292,000. Electrolytes unremarkable. Creatinine 1.8 down from 2.3, BUN of 39. Lactic acid of 2.7. AST and ALT are normal. Alkaline phosphatase mildly elevated at 167, albumin of 2.9. ASSESSMENT: 1. Nausea and vomiting. 2. Abdominal pain. 3. Constipation. 4. Diabetes. 5. Coronary artery disease. 6. Congestive heart failure. 7. Obstructive sleep apnea and chronic shortness of breath. 8. Peripheral vascular disease. 9. Thyroid disease. 10. High blood pressure. 11. Morbid obesity. 12. Anemia, anemia of chronic illness. 13. Chronic pain with chronic use of narcotics. RECOMMENDATIONS: 1. Try to limit or decrease use of narcotics. 2. PPI. 3. Consider upper endoscopy, especially if symptoms do not improve. 4. Consider nuclear medicine gastric emptying study; however, may be limited due to her size. 5. MiraLax for constipation. <ELECTRONICALLY SIGNED> By: dEuardo Bernstein MD 04/18/17 1101 1546 1903 Eduardo Bernstein MD /nt
--- NOTE | ~2017-04-11 | EKG ---
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 : 1950 Requested By: Vitaliy Ruvalcaba Order Number: [id number] MD: Renato Novoa Measurements Intervals [place] Rate: 92 P: 41 CO: 167 QRS: -82 QRSD: 154 T: -18 QT: 424 QTc: 525 Interpretive Statements Sinus rhythm Atrial premature complex RBBB and LAFB Compared to ECG 03/20/2017 20:12:37 Atrial premature complex(es) now present Possible ischemia no longer present Electronically Signed On 04-12-2017 8:35:58 CDT by Renato Novoa [email or web address] <ELECTRONICALLY SIGNED> By: Renato Novoa MD, [facility] 04/12/17 0835 194 43 Renato Novoa MD, [facility] /EPI
--- NOTE | ~2017-04-11 | S ---
[facility] [place] [address] SURGICAL PATH RPT PROCEDURE Name: CATALINO CARRASCO Room #: 304-P [facility] IN M.R.#: [id number] Admission: 04/11/17 Date of : 46 Discharge: 04/16/17 Report #: [id number] Path Case #: [id number] PATHOLOGY REPORT COLLECTION DATE: 04/15/2017 RECEIVED DATE: 04/15/2017 SUBMITTING PHYS: Dr. Klaus Gruber OTHER PHYS: Dr. Asher Goodson SPECIMEN(S) RECEIVED: A.Duodenal bx B.Gastric bx * * * * * * * * * * * * FINAL DIAGNOSIS: A. Small bowel mucosa, duodenal, endoscopic biopsy: - Mild focal peptic duodenitis. - Negative for villous blunting or increase in intraepithelial lymphocytosis. B. Gastric mucosa, gastric, endoscopic biopsy: - Mild reactive gastropathy. - Negative for intestinal metaplasia or atrophy. - Negative for Helicobacter pylori. ([facility]:lance; 04/17/2017) COMMENT: Helicobacter pylori immunohistochemical stain performed on block B1 - Negative. ([facility]; 04/17/2017) PATHOLOGIST: Renetta Ricketts M.D. REPORT ELECTRONICALLY SIGNED BY: Renetta Ricketts M.D. DATE/TIME: 04/17/2017 15:40 * * * * * * * * * * * * GROSS PATHOLOGY: A. Received in formalin labeled "Catalino Carrasco, duodenal biopsy," are three segments of brooks soft tissue measuring 0.6 x 0.5 x 0.2 cm in aggregate dimensions and ranging from 0.2 to 0.3 cm in maximum dimension. The specimen is submitted entirely in cassette A1. B. Received in formalin labeled "Catalino Carrasco, gastric biopsy," are two segments of brooks soft tissue measuring 0.7 x 0.5 x 0.2 cm in aggregate dimensions and ranging from 0.4 to 0.5 cm in maximum dimension. The specimen is submitted entirely in cassette B1. ([facility]; 04/16/2017) [address] [address] SURGICAL PATH RPT PROCEDURE Name: CATALINO CARRASCO Room #: 304-P [facility] IN M.R.#: [id number] Admission: 04/11/17 Date of : 46 Discharge: 04/16/17 Report #: [id number] Path Case #: [id number] CLINICAL HISTORY: Pre-op diagnosis: Nausea/vomiting, abdominal pain Post-op diagnosis: Normal EGD A. R/O sprue B. R/O H. pylori INITIAL CPT CODE(S): A; 24856 B; 10890, 02485 Professional services performed by [facility] at [address], [place] [address] Technical services performed by [facility] at [address] [place] [address], [address] [address]. [facility] [address] [place] [address] PHONE: [phone] DIRECTOR: Alec Griffiths M.D. * * * END OF REPORT * * *
[~2017-04-11 19:16] MED LIST changes: +AUGMENTIN 500-1 EACH PO; +DOXYCYCLINE 10100 M1 PO; +FENTANYL PA25 MCG/HR TOP; +NASAL SPRAY30 ML NS; +ROXICODONE5 M2 PO
[2017-04-11 19:18] VITALS: BP 192/91
[2017-04-11 19:32] LABS: ABSOLUTE NEUTROPHILS 7.3 thou/uL (1.4-8.2); BASOPHILS 1.3 % (0.0-2.0); EOSINOPHILS 0.4 % (0.0-3.0); HEMATOCRIT 38.9 % (37.0-47.0); HEMOGLOBIN 12.9 gm/dL (12.0-15.0); LYMPHOCYTES 12.3 % (24.0-44.0); MCH 28.6 pg (26.0-34.0); MCHC 33.2 g/dL (28.0-37.0); MCV 86.2 fL (80.0-100.0); MONOCYTES 5.4 % (1.0-8.0); PLATELET COUNT 306 thou/uL (150-400); POLYS 80.6 % (36.0-66.0); RBC 4.52 mil/uL (4.20-5.00); RDW 15.8 % (10.5-14.5); WBC 9.1 thou/uL (4.0-11.0)
[2017-04-11 19:33] LABS: MANUAL DIFF NO
[2017-04-11] MEDS ORDERED: NOVOLOG100 UNIT/1 SUBQ ×2 (19:39→19:40)
[2017-04-11] MEDS ORDERED: GLUCAGON EMERGEN1 MG (19:41)
[2017-04-11] MEDS ORDERED: LANTUS100 UNIT/M SUBQ (19:42)
[2017-04-11 19:43] LABS: CALCIUM 8.3 mg/dL (8.5-10.1); CREATININE 2.3 mg/dL (0.6-1.0); POTASSIUM 3.4 mmol/L (3.5-5.1)
[2017-04-11 19:51] LABS: ALBUMIN 2.9 g/dL (3.4-5.0); TOTAL BILIRUBIN 0.4 mg/dL (<0.1-1.0); TOTAL PROTEIN 7.4 g/dL (6.4-8.2); TROPONIN-I 0.07 ng/mL (<0.04-0.07)
[2017-04-11 22:36] LABS: URINE BILIRUBIN NEGATIVE (Negative); URINE BLOOD 1+ (Negative); URINE COLOR YELLOW; URINE GLUCOSE-RANDOM* NEGATIVE (Negative); URINE KETONES NEGATIVE (Negative); URINE LEUKOCYTES-REFLEX NEGATIVE (Negative); URINE PROTEIN (DIPSTICK) 2+ (Negative); URINE SPECIFIC GRAVITY 1.015 (1.003-1.035); URINE UROBILINOGEN 0.2 E.U./dl (0.2-1.0)
[2017-04-11 22:44] LABS: CASTS None Seen /LPF (None Seen); SQUAMOUS 0-3 Few /LPF (0-3); URINE RBC 0-2 Rare /HPF (0-2); URINE WBC-REFLEX 0-5 Rare /HPF (0-5)
[2017-04-11 22:45] LABS: CRYSTALS None Seen /LPF (None Seen)
[2017-04-12 00:53] LABS: ABG SAMPLE TYPE ARTERIAL; BE(vivo) 6.1 mmol/L (-2 to +3); HCO3 25.2 mmol/L (22.0-26.0); LACTATE 3.02 mmol/L (0.5-2.0); O2(CT) 18.2 mL/dL (15.0-23.0); O2Hb 94.7 % (92.0-98.0); STICK SITE R.RADIAL; sO2 96.6 % (92.0-98.0); tCO2 25.9 mmol/L (24.0-30.0)
[2017-04-12 00:54] LABS: PCO2 22.9 mmHg (35.0-45.0)
[2017-04-12 06:52] LABS: ABG SAMPLE TYPE ARTERIAL; BE(vivo) 2.5 mmol/L (-2 to +3); HCO3 24.2 mmol/L (22.0-26.0); LACTATE 1.82 mmol/L (0.5-2.0); O2(CT) 18.4 mL/dL (15.0-23.0); O2Hb 97.5 % (92.0-98.0); PCO2 28.9 mmHg (35.0-45.0); PO2 116.9 mmHg (80.0-100.0); STICK SITE R.RADIAL; sO2 98.7 % (92.0-98.0)
[2017-04-12 08:52] VITALS: BP 175/61
[2017-04-12 09:34] LABS: HEMATOCRIT 38.3 % (37.0-47.0); HEMOGLOBIN 12.5 gm/dL (12.0-15.0); MCH 28.7 pg (26.0-34.0); MCHC 32.7 g/dL (28.0-37.0); MCV 87.9 fL (80.0-100.0); RBC 4.36 mil/uL (4.20-5.00); RDW 16.1 % (10.5-14.5); WBC 8.3 thou/uL (4.0-11.0)
[2017-04-12 09:57] LABS: CALCIUM 8.2 mg/dL (8.5-10.1); CREATININE 1.8 mg/dL (0.6-1.0); MAGNESIUM 1.8 mg/dL (1.8-2.4); POTASSIUM 3.6 mmol/L (3.5-5.1)
[2017-04-12 10:11] VITALS: BP 169/70
[2017-04-12 10:17] VITALS: BP 167/97
[2017-04-12 12:00] VITALS: BP 178/71
[2017-04-12 16:00] VITALS: BP 115/89
[2017-04-12 20:11] VITALS: BP 174/68
[2017-04-13 00:04] VITALS: BP 185/55
[2017-04-13 04:43] VITALS: BP 170/57
[2017-04-13 06:09] LABS: BASOPHILS 0.7 % (0.0-2.0); HEMATOCRIT 32.5 % (37.0-47.0); HEMOGLOBIN 10.7 gm/dL (12.0-15.0); LYMPHOCYTES 19.7 % (24.0-44.0); MCH 28.9 pg (26.0-34.0); MCHC 32.9 g/dL (28.0-37.0); MCV 87.9 fL (80.0-100.0); MONOCYTES 8.3 % (1.0-8.0); PLATELET COUNT 251 thou/uL (150-400); POLYS 68.3 % (36.0-66.0); RDW 16.1 % (10.5-14.5); WBC 8.7 thou/uL (4.0-11.0)
[2017-04-13 06:16] LABS: MANUAL DIFF NO
[2017-04-13 06:18] LABS: CALCIUM 7.7 mg/dL (8.5-10.1); CREATININE 1.6 mg/dL (0.6-1.0); POTASSIUM 3.3 mmol/L (3.5-5.1)
[2017-04-13 07:14] VITALS: BP 174/57
[2017-04-13 11:30] VITALS: BP 155/85
[2017-04-13 15:24] VITALS: BP 158/59
[2017-04-13 19:08] VITALS: BP 152/51
[2017-04-14 03:18] LABS: ABSOLUTE NEUTROPHILS 5.6 thou/uL (1.4-8.2); BASOPHILS 0.6 % (0.0-2.0); HEMATOCRIT 30.7 % (37.0-47.0); HEMOGLOBIN 10.1 gm/dL (12.0-15.0); MCH 28.8 pg (26.0-34.0); MCHC 32.9 g/dL (28.0-37.0); MCV 87.7 fL (80.0-100.0); MONOCYTES 9.6 % (1.0-8.0); PLATELET COUNT 215 thou/uL (150-400); POLYS 61.8 % (36.0-66.0); RDW 15.7 % (10.5-14.5); WBC 9.1 thou/uL (4.0-11.0)
[2017-04-14 03:27] LABS: MANUAL DIFF NO
[2017-04-14 03:30] LABS: ALBUMIN 2.3 g/dL (3.4-5.0); CALCIUM 7.6 mg/dL (8.5-10.1); CREATININE 1.4 mg/dL (0.6-1.0); POTASSIUM 4.1 mmol/L (3.5-5.1); TOTAL BILIRUBIN 0.3 mg/dL (<0.1-1.0); TOTAL PROTEIN 5.9 g/dL (6.4-8.2)
[2017-04-14 03:41] VITALS: BP 193/65
[2017-04-14 06:54] VITALS: BP 175/61
[2017-04-14 07:46] VITALS: BP 184/65
[2017-04-14 17:40] VITALS: BP 157/60
[2017-04-14 20:00] VITALS: BP 166/62
[2017-04-15 04:00] VITALS: BP 159/61
[2017-04-15 05:18] LABS: ABSOLUTE NEUTROPHILS 5.6 thou/uL (1.4-8.2); BASOPHILS 0.5 % (0.0-2.0); EOSINOPHILS 5.9 % (0.0-3.0); HEMATOCRIT 30.2 % (37.0-47.0); LYMPHOCYTES 21.4 % (24.0-44.0); MCV 87.6 fL (80.0-100.0); MONOCYTES 8.4 % (1.0-8.0); PLATELET COUNT 207 thou/uL (150-400); POLYS 63.8 % (36.0-66.0); RBC 3.44 mil/uL (4.20-5.00); RDW 16.2 % (10.5-14.5); WBC 8.8 thou/uL (4.0-11.0)
[2017-04-15 05:24] LABS: ALBUMIN 2.1 g/dL (3.4-5.0); CALCIUM 7.3 mg/dL (8.5-10.1); CREATININE 1.2 mg/dL (0.6-1.0); POTASSIUM 3.9 mmol/L (3.5-5.1); TOTAL BILIRUBIN 0.2 mg/dL (<0.1-1.0); TOTAL PROTEIN 5.8 g/dL (6.4-8.2)
[2017-04-15 06:00] LABS: MANUAL DIFF NO
[2017-04-15 07:40] VITALS: BP 166/55
[2017-04-15 16:00] VITALS: BP 119/46
[2017-04-15 19:55] VITALS: BP 120/53
[2017-04-16 03:30] VITALS: BP 193/73
[2017-04-16 08:00] VITALS: BP 180/71
== END 2017-04-16 13:54 | DRG 682 ==
LOC: ER 19:16 → 3N 22:31 → EROBS 22:31 → 4W 04-12 09:53 → 3N 04-14 17:36
PROVIDERS: Family Medicine; Nurse Practitioner Acute Care; Nurse Practitioner Family; Physician Assistant
PROC: 0DB68ZX Excision of Stomach, Via Natural or Artificial Opening Endoscopic, Diagnostic (ICD-10-PCS; principal; 2017-04-15)
PROC: 0DB98ZX Excision of Duodenum, Via Natural or Artificial Opening Endoscopic, Diagnostic (ICD-10-PCS; principal; 2017-04-15)
DX: N17.9 Acute kidney failure, unspecified (principal); E43 Unspecified severe protein-calorie malnutrition; G93.41 Metabolic encephalopathy; I13.0 Hypertensive heart and chronic kidney disease with heart failure and stage 1 through stage 4 chronic kidney disease, or unspecified chronic kidney disease; E87.2 Acidosis; I50.32 Chronic diastolic (congestive) heart failure; E11.51 Type 2 diabetes mellitus with diabetic peripheral angiopathy without gangrene; E66.01 Morbid (severe) obesity due to excess calories; E78.5 Hyperlipidemia, unspecified; E03.9 Hypothyroidism, unspecified; F32.9 Major depressive disorder, single episode, unspecified; F41.9 Anxiety disorder, unspecified; G89.4 Chronic pain syndrome; I25.10 Atherosclerotic heart disease of native coronary artery without angina pectoris; K59.00 Constipation, unspecified; G47.33 Obstructive sleep apnea (adult) (pediatric); N18.3 Chronic kidney disease, stage 3 (moderate); E87.6 Hypokalemia; I87.2 Venous insufficiency (chronic) (peripheral); Z89.422 Acquired absence of other left toe(s); Z79.899 Other long term (current) drug therapy; Z88.2 Allergy status to sulfonamides; Z88.8 Allergy status to other drugs, medicaments and biological substances; Z91.018 Allergy to other foods; Z91.09 Other allergy status, other than to drugs and biological substances; Z87.891 Personal history of nicotine dependence; I25.2 Old myocardial infarction; Z80.0 Family history of malignant neoplasm of digestive organs
CPT/HCPCS: 10045; 10096; 27001; 62110; 62900; 70005

== ENCOUNTER 2017-08-10 13:02 | Inpatient (IN) | payer OTHER ==
[~2017-08-10] VITALS: Ht 160 cm; Wt 154.4 kg
--- NOTE | ~2017-08-10 | S ---
[facility] [place] [address] SURGICAL PATH RPT PROCEDURE Name: CATALINO CARRASCO Room #: 215-P ADM IN M.R.#: [id number] Admission: 08/10/17 Date of : 46 Discharge: Report #: [id number] Path Case #: [id number] PATHOLOGY REPORT COLLECTION DATE: 08/14/2017 RECEIVED DATE: 08/15/2017 SUBMITTING PHYS: Dr. Deejay Ha, OTHER PHYS: Dr. Asher Rachel SPECIMEN(S) RECEIVED: A.Sacral decubitus tissue B.Sacral bone * * * * * * * * * * * * FINAL DIAGNOSIS: A. Sacral decubitus tissue: - Fibroadipose tissue with extensive necrosis and acute and chronic inflammation. - Skin with extensive ulcer. B. Sacral bone: - Reactive bone and cartilage, negative for osteomyelitis. - Fibroadipose tissue, acutely inflamed. PATHOLOGIST: Macario Ruiz M.D. REPORT ELECTRONICALLY SIGNED BY: Macario Ruiz M.D. DATE/TIME: 08/16/2017 09:32 * * * * * * * * * * * * GROSS PATHOLOGY: A. The specimen is received in formalin labeled "Catalino Grahamin, tissue decubitus ulcer," and additionally labeled on the requisition as, "sacral decubitus ulcer". Received is a large amount of dusky mares-brooks necrotic soft tissue with attached pale brooks, flaky to necrotic-appearing skin measuring 13.9 x 13.8 x 4.5 cm in aggregate dimensions. The specimen is submitted representatively in cassette A1. B. The specimen is received in formalin labeled "Catalino Carrasco, sacral bone". Received are several segments of light brooks bone measuring 2.8 x 2.2 x 0.67 m in aggregate dimensions. The specimen is submitted entirely in cassette B1, following decalcification. ([facility]; 08/15/2017) CLINICAL HISTORY: Sacral decubitus [address] [address] SURGICAL PATH RPT PROCEDURE Name: CATALINO CARRASCO Room #: 215-P [facility] IN M.R.#: [id number] Admission: 08/10/17 Date of : 46 Discharge: Report #: [id number] Path Case #: [id number] INITIAL CPT CODE(S): A; 75209 B; 17839, 93145 Professional services performed by [email or web address] at [address], [place] [address] Technical services performed by [facility] at [address] [place] [address], [facility] [address] [address]. [facility] [address] [place] [address] PHONE: [phone] DIRECTOR: Alec Griffiths M.D. * * * END OF REPORT * * *
--- NOTE | ~2017-08-10 | HC ---
[facility] [place] [address] CONSULTATION Name: CATALINO DAVIS Abdelrahman Room #: 215-P [facility] IN ..#: [id number] Admission: 08/10/17 Attend Phys: Asher Goodson DO Discharge: Date of : 46 Report #: [id number] THIS REPORT FOR: //name// CC: Asher Rachel DATE OF SERVICE: 08/11/2017 HISTORY OF PRESENT ILLNESS: The patient is a 67-year-old female who was admitted for anemia. Apparently, hemoglobin was 6.7 at her [place] [facility]. She denies any obvious bright red blood per rectum or melena. On admission to the Emergency Room yesterday, she was Hemoccult positive. She is unsure when she has had her last colonoscopy, but in reviewing records, she had stated, possibly 3-4 years ago. She is unsure if she had diverticulosis at that time. She does have a family history of colon cancer in her mother. She does complain of abdominal pain, but this is chronic. She denies any nausea or vomiting at this time. Her hemoglobin on admission yesterday was 7.1. She was given 1 unit of packed cells and her hemoglobin today is 8.0. She had ascending cholangitis with choledocholithiasis at the beginning of the month and Dr. Bernstein performed an ERCP on 07/17/2017 in which stones were removed. She has a history of morbid obesity and because her liver function test improved after ERCP and stone removal, it was elected not to proceed with a cholecystectomy. She is unsure if there is blood in her stools at this time because she does not look at her stools in general. She denies any fevers or chills. PAST MEDICAL HISTORY: Choledocholithiasis with ascending cholangitis, status post ERCP with stone removal on 07/17/2017, morbid obesity, chronic abdominal pain, constipation history, peripheral vascular disease, history of anemia, diabetes, hyperlipidemia, previous thyroidectomy, depression. She has had a right hulxg-dfb-jtdq amputation, chronic renal disease, history of heart failure. ALLERGIES: GERMAN INHIBITORS, ADHESIVE TAPE, LINEZOLID, MUSHROOMS, SULFA. REVIEW OF SYSTEMS: As per HPI. MEDICATIONS: On admission, amlodipine, spironolactone, fentanyl patch, Roxicodone, hydralazine, Imdur, carvedilol, torsemide, Synthroid, Protonix, aspirin, Singulair, Ativan, insulin. FAMILY HISTORY: Positive for colon cancer in her mother. SOCIAL HISTORY: She denies any tobacco or alcohol use. PHYSICAL EXAMINATION: VITAL SIGNS: Temperature 99.4, pulse 64, blood pressure ____, respiratory rate [address] [address] CONSULTATION Name: SUSANCATALINO Abdelrahman Room #: 215-P [facility] IN M.R.#: [id number] Admission: 08/10/17 Attend Phys: Asher Goodson DO Discharge: Date of : 46 Report #: [id number] is 20. GENERAL: She is alert and oriented x 3, in no acute distress. HEENT: Sclerae nonicteric. Oropharynx clear. NECK: Supple, without lymphadenopathy. CARDIOVASCULAR: Regular rate and rhythm. CHEST: Decreased breath sounds bilaterally. ABDOMEN: Obese, nondistended. She is diffusely mildly tender. Positive bowel sounds. EXTREMITIES: Dppbj-dgq-kthy amputation noted on the right, pitting edema on the left lower extremity. LABORATORY DATA: Sodium 135, potassium 5.9, chloride 101, bicarb 25, BUN 83, creatinine 2.5, glucose 144, AST is 44, lipase 55, total bili 0.5, alk phos 356, ALT is 40. Albumin is 2.0. INR 1.1. WBC is 11.8, hemoglobin 8.0, that was after 1 unit of packed cells. In reviewing her hemoglobin, she has been in the 8-9 range since February 2017. MCV is 87.6, platelet count is 190. ASSESSMENT AND PLAN: Anemia, Hemoccult positive stool the Emergency Room. The patient has a history of chronic anemia. Apparently, has had a colonoscopy in the last 4-5 years. She is high risk for procedure with sedation. Therefore, would not recommend proceeding with endoscopy unless she has significant signs of bleeding, which there has not been a sign of at this time. We will continue to monitor hemoglobin closely. Thank you for allowing me to participate in her care. <ELECTRONICALLY SIGNED> By: Klaus Gruber MD 08/14/17 0954 1239 0015 Klaus Gruber MD /nt
--- NOTE | ~2017-08-10 | HC ---
[facility] [place] [address] CONSULTATION Name: CATALINO DAVIS Room #: 215-P ADM IN M.R.#: [id number] Admission: 08/10/17 Attend Phys: Asher Goodson DO Discharge: Date of : 46 Report #: [id number] THIS REPORT FOR: //name// CC: Asher EDWARDS MD DATE OF SERVICE: 08/15/2017 ATTENDING PHYSICIAN: Asher Goodson D.O. CONSULTATION REQUESTED BY: Dr. Hurtado. REASON FOR CONSULTATION: Antibiotic management, stage IV sacral decubitus. HISTORY OF PRESENT ILLNESS: The patient is a 67-year-old white woman known to me from previous hospitalization at [facility] and [facility]. The patient is readmitted at this particular time with low hemoglobin of 6.7 as well as lightheadedness. The patient has chronic kidney disease as well as a sacral decubitus. She undergoes surgical debridement of the decubitus by Dr. Deejay Ha on 08/14/2017. She had debridement of necrotic skin, subcutaneous tissues, muscle and sacral bone. Currently, she is on combination antibiotics consistent of vancomycin and Zosyn. The patient obviously having pain in the sacral decubitus. We will visit the patient with Dr. Saad Edwards who will get in touch with the plastic surgeon that might be willing to perform a flap closure of the decubitus after a period of parenteral antibiotic and vacuum device to sacral decubitus. The patient recently hospitalized at [facility] and she was found to have Escherichia coli bacteremia secondary to acute cholangitis, choledocholithiasis. She appears to be stable from this standpoint. DRUG ALLERGIES: GERMAN INHIBITORS, SULFA DRUGS, AND LINEZOLID. MEDICATIONS: The patient is currently on treatment with fentanyl 25 mcg patch every 72 hours, amlodipine 10 mg daily, torsemide 40 mg daily, isosorbide mononitrate 60 mg daily, pantoprazole 40 mg daily, insulin determined 43 units subq daily, vancomycin 1 gram IV every 12 hours, Zosyn 3.37 grams IV every 6 hours, lorazepam, montelukast, insulin detemir, carvedilol, hydralazine, insulin lispro per sliding scale, p.r.n. acetaminophen, p.r.n. fentanyl, topical nystatin, p.r.n. glucose, glucagon, oxycodone immediate release around the clock. PAST MEDICAL HISTORY: 1. Diabetes mellitus. 2. Morbid obesity. 3. [place] [address] CONSULTATION Name: CATALINO DAVIS Room #: 215-P [facility] IN M.R.#: [id number] Admission: 08/10/17 Attend Phys: Asher Goodson DO Discharge: Date of : 46 Report #: [id number] 4. Chronic kidney disease. 5. Dyslipidemia. 6. Hypothyroidism. 7. Chronic pain syndrome. 8. Status post right BKA. 9. Status post recent debridement of sacral decubitus with exposed bone. 10. Diastolic congestive heart failure. 11. Thyroidectomy and hypothyroidism, on replacement. 12. Chronic constipation. SOCIAL HISTORY: See H and P and old records. FAMILY HISTORY: See H and P and old records. REVIEW OF SYSTEMS: Obviously at present main complaint of this patient is pain in the sacral decubitus, voices no complaints for time being. PHYSICAL EXAMINATION: GENERAL: Chronically ill-appearing woman, overweight, not toxic. VITAL SIGNS: Temperature 98.6, pulse 62, respirations 18, BP 143/55. Height 5 feet 5 inches, weight 340 pounds. HEENMT: Within range. NECK: Supple. CHEST: Right-sided PICC. LUNGS: Clear. HEART: S1, S2. No gallop. ABDOMEN: Obese, soft, no masses or megaly. BACK: Stage IV sacral decubitus with exposed bone, status post recent debridement. No foul odor. EXTREMITIES: Stasis dermatitis, left leg, status post toe amputation, left foot and right BKA. NEUROLOGIC: Grossly within normal limits. LABORATORY DATA: Sodium 135, potassium 4.9, BUN 66, creatinine 1.8, glucose 144, albumin 1.5 g/dL. NT-proBNP markedly elevated at 20,856, white blood cell count 13.7, hemoglobin 7.2, platelets 256,000. White blood cell count differential revealed 89 per second segmented neutrophils. Vancomycin trough levels are pending. Urinalysis revealed positive nitrite, greater than 10 squamous epithelial cells, many WBCs, many RBCs and bacteriuria. There are 4-6 mucus present. No casts. MICROBIOLOGY DATA: All pending at the time of this dictation. RADIOLOGY EVALUATION: MRI of the pelvis revealed a right gluteal subcutaneous cellulitis. No evidence of sacral osteomyelitis. [facility] [address] [place] [address] CONSULTATION Name: CATALINO DAVIS Room #: 215-P ADM IN Tiffany#: [id number] Admission: 08/10/17 Attend Phys: Asher Goodson DO Discharge: Date of : 46 Report #: [id number] ASSESSMENT: 1. Fever, question etiology, possibly secondary to infected decubitus, resolved. 2. Leukocytosis, improved. 3. Stage IV sacral decubitus, status post recent debridement with exposed bone. 4. Morbid obesity. 5. Diabetes mellitus. 6. Chronic kidney disease. 7. ZYVOX ALLERGY. SUGGESTIONS: Recommend continue coverage with vancomycin. Decrease dose of Zosyn to 3.375 grams IV every 8 hours. Final recommendation regarding antibiotic regimen pending culture results. Discussed the patient's situation with Dr. Saad Edwards and patient might benefit from Plastic Surgery consultation regarding possible flap closure of decubitus. Dr. Hurtado, thank you for requesting my suggestions in the care of your patient. <ELECTRONICALLY SIGNED> By: Alfredo Clayton MD 08/16/17 0958 1031 09 Alfredo Clayton MD /nt
--- NOTE | ~2017-08-10 | EKG ---
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 08/11/17 1418 1502 1502 Renato Novoa MD, [facility] /EPI
--- NOTE | ~2017-08-10 | HC ---
[facility] [place] [address] CONSULTATION Name: CATALINO DAVIS Room #: 215-P ADM IN ..#: [id number] Admission: 08/10/17 Attend Phys: Asher Goodson DO Discharge: Date of : 46 Report #: [id number] THIS REPORT FOR: //name// CC: Asher Rachel DATE OF SERVICE: 08/12/2017 CHIEF COMPLAINT: Sacral pressure ulcer. HISTORY OF PRESENT ILLNESS: This is a 67-year-old female patient who is admitted to the hospital here on 08/10/2017. She lives at [facility], came in through the Emergency Department with a hemoglobin of 6.7, shortness of breath, dizziness and lightheadedness as well as hematochezia, was noted to have GI bleeding. She was also noted to have a large sacral pressure ulceration. I have been asked to see her in this regard. PAST MEDICAL HISTORY: Positive for history of pulmonary edema, choledocholithiasis, constipation, elevated troponin, pulmonary edema, respiratory failure and urinary tract infection, chronic kidney disease stage 3. ALLERGIES: GERMAN INHIBITORS, ADHESIVE TAPE, ZYVOX, MUSHROOMS, SULFA. MEDICATIONS: Include amlodipine, spironolactone, fentanyl, oxycodone, hydralazine, Isordil, carvedilol, torsemide, insulin, lorazepam. SOCIAL HISTORY: Negative for alcohol or tobacco use. FAMILY HISTORY: Noncontributory. REVIEW OF SYSTEMS: CONSTITUTIONAL: Denies fever, chills, weight loss. NEUROLOGICAL: The patient has generalized weakness. Denies focal weakness, numbness, tingling. EYES: The patient denies visual changes, redness, or drainage. ENT: The patient denies earache, nasal drainage, or sore throat. PULMONARY: The patient does complain of shortness of breath and dyspnea on exertion. Denies hemoptysis. CARDIOVASCULAR: The patient denies chest pain, palpitations, diaphoresis. GASTROINTESTINAL: The patient denies nausea, vomiting or diarrhea. She does have hematochezia. GENITOURINARY: The patient denies frequency or urgency of urination. Denies dysuria. ORTHOPEDIC: The patient does have a right below knee amputation. Other systems in a 12-point review of systems are negative. [address] [address] CONSULTATION Name: CATALINO DAVIS Abdelrahman Room #: 215-[facility] IN ..#: [id number] Admission: 08/10/17 Attend Phys: Asher Goodson DO Discharge: Date of : 46 Report #: [id number] PHYSICAL EXAMINATION: VITAL SIGNS: At this time include pulse 59, blood pressure 124/52, temperature 99.0, respiration of 20. GENERAL: This is a chronically ill-appearing female patient, appears to be in minimal distress. HEENT: Normocephalic. Nose and throat clear. NECK: Supple. LUNGS: Clear. HEART: Regular rhythm. ABDOMEN: Soft. Bowel sounds present. EXTREMITIES: Examination of the lower extremities demonstrate few areas of rash on both legs. She has previous well-healed right below knee amputation. Sacral region is examined. She has a very large pressure ulceration that is unstageable, is covered by a large amount of slough and eschar. This is mainly in the midline and extends a little bit to the right of the midline. CLINICAL IMPRESSION: 1. Unstageable sacral pressure ulceration. 2. Recent gastrointestinal bleeding with acute blood loss anemia. 3. History of respiratory failure. 4. History of congestive heart failure. 5. Diabetes mellitus. 6. Previous right below knee amputation. RECOMMENDATIONS: At this point in time, we will use a sacral foam dressing. This area will clearly need to be debrided. I think that she would do best with an operative debridement. We will consult General Surgery for such. Depending on full depth and extent, she may benefit from a wound VAC following appropriate surgical debridement. She will need to be turned and repositioned every 2 hours. She has been resistant to turning and repositioning and I have discussed with her and made sure that she understands that she has a very large sacral pressure ulceration that could become increasingly dangerous and problematic for her and that she would need to be compliant with turning and repositioning. The patient acknowledges that although it is unclear as to whether she will allow repositioning. We will recommend a low air loss mattress be initiated while here. Aggressive nutritional support to support wound healing. I appreciate being asked to see her in consultation. <ELECTRONICALLY SIGNED> By: Ventura Parsons MD 08/13/17 1316 1816 0525 Ventura Parsons MD /nt
[~2017-08-10 13:02] MED LIST changes: +DURAGESIC25 MCG/HR TRANSDERM; +GLUCAGON EMERGEN1 MG; +SPIRONOLACTONE25 M1 PO
[2017-08-10 13:50] LABS: HEMATOCRIT 21.9 % (37.0-47.0); HEMOGLOBIN 7.1 gm/dL (12.0-15.0); MCH 28.3 pg (26.0-34.0); MCHC 32.5 g/dL (28.0-37.0); PLATELET COUNT 198 thou/uL (150-400); RBC 2.52 mil/uL (4.20-5.00); RDW 16.1 % (10.5-14.5)
[2017-08-10 13:51] LABS: MANUAL DIFF YES
[2017-08-10 14:02] LABS: CALCIUM 7.5 mg/dL (8.5-10.1); CREATININE 2.5 mg/dL (0.6-1.0)
[2017-08-10 14:05] LABS: APTT 27.6 Seconds (24.5-32.8); INR 1.1; PROTIME 10.8 Seconds (9.3-11.4)
[2017-08-10 14:07] LABS: DIRECT BILIRUBIN 0.3 mg/dL (<0.1-0.3); TOTAL BILIRUBIN 0.5 mg/dL (<0.1-1.0); TOTAL PROTEIN 6.9 g/dL (6.4-8.2)
[2017-08-10 14:08] LABS: ANISOCYTOSIS 1+; TOTAL CELL COUNT 100
[2017-08-10 14:09] LABS: ABSOLUTE NEUTROPHILS 9.1 thou/uL (1.4-8.2)
[2017-08-10 15:57] LABS: MAGNESIUM 2.4 mg/dL (1.8-2.4)
[2017-08-10 16:06] LABS: POTASSIUM 6.1 mmol/L (3.5-5.1)
[2017-08-10 16:17] VITALS: BP 113/30
[2017-08-10] MEDS ORDERED: BISACODYL SUPP10 MG RECTAL (16:44)
[2017-08-10 17:08] VITALS: BP 118/39
[2017-08-10 20:15] VITALS: BP 110/52
[2017-08-10 23:30] VITALS: BP 122/47
[2017-08-10 23:38] VITALS: BP 126/54; BP 128/48
[2017-08-11 01:30] VITALS: BP 138/57
[2017-08-11 03:56] LABS: CALCIUM 7.4 mg/dL (8.5-10.1); CREATININE 2.5 mg/dL (0.6-1.0); POTASSIUM 5.9 mmol/L (3.5-5.1)
[2017-08-11 03:58] VITALS: BP 136/48
[2017-08-11 03:58] LABS: ABSOLUTE NEUTROPHILS 9.8 thou/uL (1.4-8.2); BASOPHILS 0.2 % (0.0-2.0); EOSINOPHILS 1.3 % (0.0-3.0); HEMATOCRIT 24.5 % (37.0-47.0); MANUAL DIFF NO; MCH 28.6 pg (26.0-34.0); MCHC 32.7 g/dL (28.0-37.0); MCV 87.6 fL (80.0-100.0); MONOCYTES 8.8 % (1.0-8.0); PLATELET COUNT 190 thou/uL (150-400); POLYS 82.7 % (36.0-66.0); RDW 15.9 % (10.5-14.5); WBC 11.8 thou/uL (4.0-11.0)
[2017-08-11 08:05] VITALS: BP 138/59
[2017-08-11 11:30] VITALS: BP 132/54
[2017-08-11 16:00] VITALS: BP 118/43
[2017-08-11 20:10] VITALS: BP 114/52
[2017-08-12 04:05] VITALS: BP 132/54
[2017-08-12 07:47] LABS: HEMATOCRIT 25.2 % (37.0-47.0); MCHC 31.9 g/dL (28.0-37.0); MCV 87.7 fL (80.0-100.0); PLATELET COUNT 203 thou/uL (150-400); RBC 2.87 mil/uL (4.20-5.00); RDW 16.3 % (10.5-14.5); WBC 13.3 thou/uL (4.0-11.0)
[2017-08-12 07:48] LABS: MANUAL DIFF YES
[2017-08-12 07:50] VITALS: BP 141/48
[2017-08-12 07:58] LABS: CALCIUM 7.6 mg/dL (8.5-10.1); CREATININE 2.2 mg/dL (0.6-1.0)
[2017-08-12 09:23] LABS: ABSOLUTE NEUTROPHILS 10.8 thou/uL (1.4-8.2); PLATELET ESTIMATE NORMAL; TOTAL CELL COUNT 100
[2017-08-12 11:30] VITALS: BP 117/99
[2017-08-12 16:05] VITALS: BP 124/52
[2017-08-12 19:23] VITALS: BP 123/43
[2017-08-13 03:54] VITALS: BP 131/49
[2017-08-13 04:17] LABS: ALBUMIN 1.6 g/dL (3.4-5.0); CALCIUM 7.2 mg/dL (8.5-10.1); CREATININE 2.1 mg/dL (0.6-1.0); DIRECT BILIRUBIN 0.3 mg/dL (<0.1-0.3); PHOSPHORUS 4.8 mg/dL (2.5-4.9); POTASSIUM 4.8 mmol/L (3.5-5.1); TOTAL BILIRUBIN 0.5 mg/dL (<0.1-1.0); TOTAL PROTEIN 6.2 g/dL (6.4-8.2)
[2017-08-13 05:00] LABS: HEMATOCRIT 22.7 % (37.0-47.0); HEMOGLOBIN 7.2 gm/dL (12.0-15.0); MCH 28.3 pg (26.0-34.0); MCHC 31.8 g/dL (28.0-37.0); MCV 88.9 fL (80.0-100.0); PLATELET COUNT 207 thou/uL (150-400); RBC 2.56 mil/uL (4.20-5.00); RDW 16.1 % (10.5-14.5); WBC 12.5 thou/uL (4.0-11.0)
[2017-08-13 05:04] LABS: MANUAL DIFF YES
[2017-08-13 07:46] LABS: ABSOLUTE NEUTROPHILS 9.5 thou/uL (1.4-8.2); TOTAL CELL COUNT 100
[2017-08-13 07:47] LABS: ANISOCYTOSIS 1+; HYPOCHROMASIA SLIGHT; POIKILOCYTOSIS SLIGHT
[2017-08-13 08:20] VITALS: BP 126/45
[2017-08-13 12:10] VITALS: BP 131/55
[2017-08-13 16:55] VITALS: BP 128/45
[2017-08-13 19:51] VITALS: BP 118/41
[2017-08-13 21:23] LABS: URINE BILIRUBIN NEGATIVE (Negative); URINE BLOOD 2+ (Negative); URINE COLOR YELLOW; URINE GLUCOSE-RANDOM* NEGATIVE (Negative); URINE KETONES NEGATIVE (Negative); URINE NITRITE POSITIVE (Negative); URINE PROTEIN (DIPSTICK) 1+ (Negative)
[2017-08-13 21:34] LABS: BACTERIA >30 Many /HPF (None Seen); CASTS None Seen /LPF (None Seen); CRYSTALS None Seen /LPF (None Seen); SQUAMOUS >10 Many /LPF (0-3); URINE WBC >25 Many /HPF (0-5)
[2017-08-14 00:14] VITALS: BP 121/52
[2017-08-14 03:11] LABS: HEMATOCRIT 21.8 % (37.0-47.0); MCH 28.2 pg (26.0-34.0); PLATELET COUNT 211 thou/uL (150-400); RBC 2.47 mil/uL (4.20-5.00); RDW 16.2 % (10.5-14.5); WBC 15.6 thou/uL (4.0-11.0)
[2017-08-14 03:12] LABS: MANUAL DIFF YES
[2017-08-14 03:21] LABS: ALBUMIN 1.5 g/dL (3.4-5.0); CALCIUM 7.3 mg/dL (8.5-10.1); PHOSPHORUS 4.6 mg/dL (2.5-4.9); POTASSIUM 4.5 mmol/L (3.5-5.1)
[2017-08-14 03:29] VITALS: BP 125/44
[2017-08-14 04:50] LABS: ABSOLUTE NEUTROPHILS 13.4 thou/uL (1.4-8.2); ANISOCYTOSIS 1+; TOTAL CELL COUNT 100
[2017-08-14 04:51] LABS: POLYCHROMASIA OCCASIONAL
[2017-08-14 08:23] VITALS: BP 118/47
[2017-08-14 11:30] VITALS: BP 116/60
[2017-08-14 15:48] VITALS: BP 143/61
[2017-08-14 20:04] VITALS: BP 142/60
[2017-08-15 03:14] VITALS: BP 137/59
[2017-08-15 03:47] LABS: HEMATOCRIT 22.5 % (37.0-47.0); HEMOGLOBIN 7.2 gm/dL (12.0-15.0); MCH 27.8 pg (26.0-34.0); MCHC 31.8 g/dL (28.0-37.0); MCV 87.5 fL (80.0-100.0); PLATELET COUNT 256 thou/uL (150-400); RBC 2.58 mil/uL (4.20-5.00); RDW 16.1 % (10.5-14.5); WBC 13.7 thou/uL (4.0-11.0)
[2017-08-15 03:49] LABS: MANUAL DIFF YES
[2017-08-15 03:56] LABS: ALBUMIN 1.5 g/dL (3.4-5.0); CALCIUM 7.4 mg/dL (8.5-10.1); CREATININE 1.8 mg/dL (0.6-1.0); PHOSPHORUS 4.7 mg/dL (2.5-4.9); POTASSIUM 4.9 mmol/L (3.5-5.1)
[2017-08-15 06:23] LABS: ABSOLUTE NEUTROPHILS 12.6 thou/uL (1.4-8.2); ANISOCYTOSIS 1+; METAMYELOCYTES 2 %; MYELOCYTES 2 %; POLYCHROMASIA OCCASIONAL; TOTAL CELL COUNT 100
[2017-08-15 07:11] VITALS: BP 143/55
[2017-08-15 12:11] VITALS: BP 119/47
[2017-08-15 16:20] VITALS: BP 112/44
[2017-08-15 19:38] VITALS: BP 106/41
[2017-08-16] VITALS (8 sets, daily range): BP systolic 104–128; BP diastolic 35–56
[2017-08-16 06:48] LABS: HEMOGLOBIN 6.9 gm/dL (12.0-15.0); RBC 2.41 mil/uL (4.20-5.00)
[2017-08-16 06:50] LABS: MCH 28.9 pg (26.0-34.0); MCV 87.5 fL (80.0-100.0); PLATELET COUNT 283 thou/uL (150-400); RDW 16.1 % (10.5-14.5)
[2017-08-16 07:04] LABS: ALBUMIN 1.5 g/dL (3.4-5.0); CALCIUM 7.4 mg/dL (8.5-10.1); CREATININE 1.7 mg/dL (0.6-1.0); PHOSPHORUS 4.3 mg/dL (2.5-4.9); POTASSIUM 4.2 mmol/L (3.5-5.1)
[2017-08-16 07:05] LABS: MANUAL DIFF YES
[2017-08-16 08:23] LABS: ABSOLUTE NEUTROPHILS 8.4 thou/uL (1.4-8.2); METAMYELOCYTES 1 %; TOTAL CELL COUNT 100
[2017-08-16 08:24] LABS: ANISOCYTOSIS 1+; POLYCHROMASIA OCCASIONAL
[2017-08-16 17:08] LABS: HEMATOCRIT 23.6 % (37.0-47.0); HEMOGLOBIN 7.7 gm/dL (12.0-15.0); MCH 28.2 pg (26.0-34.0); MCHC 32.5 g/dL (28.0-37.0); MCV 86.8 fL (80.0-100.0); RBC 2.72 mil/uL (4.20-5.00); RDW 15.8 % (10.5-14.5); WBC 9.2 thou/uL (4.0-11.0)
[2017-08-17 03:38] VITALS: BP 131/48
[2017-08-17 04:55] LABS: HEMATOCRIT 23.3 % (37.0-47.0); HEMOGLOBIN 7.5 gm/dL (12.0-15.0); MCH 28.3 pg (26.0-34.0); MCHC 32.3 g/dL (28.0-37.0); MCV 87.5 fL (80.0-100.0); PLATELET COUNT 297 thou/uL (150-400); RBC 2.66 mil/uL (4.20-5.00); RDW 16.4 % (10.5-14.5); WBC 8.4 thou/uL (4.0-11.0)
[2017-08-17 05:06] LABS: ALBUMIN 1.6 g/dL (3.4-5.0); CALCIUM 7.2 mg/dL (8.5-10.1); CREATININE 1.7 mg/dL (0.6-1.0); PHOSPHORUS 4.4 mg/dL (2.5-4.9); POTASSIUM 4.4 mmol/L (3.5-5.1)
[2017-08-17 05:30] LABS: MANUAL DIFF YES
[2017-08-17 06:15] LABS: ABSOLUTE NEUTROPHILS 7.1 thou/uL (1.4-8.2); ANISOCYTOSIS 1+; METAMYELOCYTES 1 %; MYELOCYTES 1 %; TOTAL CELL COUNT 100
[2017-08-17 07:45] VITALS: BP 130/51
[2017-08-17 12:00] VITALS: BP 155/56
[2017-08-17 16:00] VITALS: BP 138/47
[2017-08-17 18:02] LABS: CALCIUM 7.4 mg/dL (8.5-10.1); CREATININE 1.6 mg/dL (0.6-1.0); POTASSIUM 4.6 mmol/L (3.5-5.1)
[2017-08-17 20:12] VITALS: BP 146/53
[2017-08-18 03:57] LABS: HEMATOCRIT 23.5 % (37.0-47.0); HEMOGLOBIN 7.5 gm/dL (12.0-15.0); MCH 28.2 pg (26.0-34.0); PLATELET COUNT 293 thou/uL (150-400); RBC 2.67 mil/uL (4.20-5.00); RDW 16.4 % (10.5-14.5); WBC 8.1 thou/uL (4.0-11.0)
[2017-08-18 04:01] VITALS: BP 147/48
[2017-08-18 04:09] LABS: ALBUMIN 1.7 g/dL (3.4-5.0); CALCIUM 7.3 mg/dL (8.5-10.1); CREATININE 1.7 mg/dL (0.6-1.0); PHOSPHORUS 4.1 mg/dL (2.5-4.9); POTASSIUM 4.5 mmol/L (3.5-5.1)
[2017-08-18 04:15] LABS: MANUAL DIFF YES
[2017-08-18 04:48] LABS: ABSOLUTE NEUTROPHILS 5.5 thou/uL (1.4-8.2); ANISOCYTOSIS 2+; METAMYELOCYTES 1 %; MYELOCYTES 2 %; TOTAL CELL COUNT 100
[2017-08-18 09:27] VITALS: BP 130/39
[2017-08-18 13:00] VITALS: BP 151/46
[2017-08-18 16:38] VITALS: BP 149/45
[2017-08-18 19:29] VITALS: BP 148/45
[2017-08-19 04:00] VITALS: BP 150/53
[2017-08-19 04:51] LABS: HEMATOCRIT 24.2 % (37.0-47.0); HEMOGLOBIN 7.8 gm/dL (12.0-15.0); MCH 28.1 pg (26.0-34.0); MCHC 32.1 g/dL (28.0-37.0); MCV 87.4 fL (80.0-100.0); PLATELET COUNT 317 thou/uL (150-400); RBC 2.77 mil/uL (4.20-5.00); RDW 16.4 % (10.5-14.5); WBC 9.4 thou/uL (4.0-11.0)
[2017-08-19 04:55] LABS: CALCIUM 7.3 mg/dL (8.5-10.1); CREATININE 1.6 mg/dL (0.6-1.0); MANUAL DIFF YES; POTASSIUM 4.2 mmol/L (3.5-5.1)
[2017-08-19 05:48] LABS: ABSOLUTE NEUTROPHILS 6.8 thou/uL (1.4-8.2); ANISOCYTOSIS 1+; MYELOCYTES 1 %; POLYCHROMASIA OCCASIONAL; TOTAL CELL COUNT 100
[2017-08-19 11:50] VITALS: BP 166/63
[2017-08-19] MEDS ORDERED: PROCRIT20000 UNIT SUBQ (14:42)
[2017-08-19] MEDS ORDERED: NYAMYC15 GM TOP (14:42)
[2017-08-19] MEDS ORDERED: TORSEMIDE20 MG PO (14:42)
[2017-08-19] MEDS ORDERED: ZOSYN 3.3753.375 GM IV (14:42)
[2017-08-19] MEDS ORDERED: HUMALOG100 UNIT/1 SUBQ (14:42)
[2017-08-19 15:55] VITALS: BP 162/51
== END 2017-08-19 18:23 | DRG 981 ==
LOC: ER 13:02 → 2N 16:27 → EROBS 16:27 → 2N 17:10
PROVIDERS: Family Medicine; Hospitalist; Internal Medicine Endocrinology, Diabetes & Metabolism; Internal Medicine Nephrology; Nurse Practitioner; Nurse Practitioner Acute Care; Surgery
PROC: 30233N1 Transfusion of Nonautologous Red Blood Cells into Peripheral Vein, Percutaneous Approach (ICD-10-PCS; principal; 2017-08-10)
PROC: 0QB10ZZ Excision of Sacrum, Open Approach (ICD-10-PCS; 2017-08-14)
PROC: 02HV33Z Insertion of Infusion Device into Superior Vena Cava, Percutaneous Approach (ICD-10-PCS; 2017-08-15)
PROC: B5181ZA Fluoroscopy of Superior Vena Cava using Low Osmolar Contrast, Guidance (ICD-10-PCS; 2017-08-15)
PROC: B548ZZA Ultrasonography of Superior Vena Cava, Guidance (ICD-10-PCS; 2017-08-15)
DX: K92.2 Gastrointestinal hemorrhage, unspecified (principal); L89.154 Pressure ulcer of sacral region, stage 4; E43 Unspecified severe protein-calorie malnutrition; N17.0 Acute kidney failure with tubular necrosis; L03.312 Cellulitis of back [any part except buttock and flank]; Z68.44 Body mass index [BMI] 60.0-69.9, adult; I13.0 Hypertensive heart and chronic kidney disease with heart failure and stage 1 through stage 4 chronic kidney disease, or unspecified chronic kidney disease; I50.30 Unspecified diastolic (congestive) heart failure; M86.8X8 Other osteomyelitis, other site; D62 Acute posthemorrhagic anemia; E11.69 Type 2 diabetes mellitus with other specified complication; I87.2 Venous insufficiency (chronic) (peripheral); E11.51 Type 2 diabetes mellitus with diabetic peripheral angiopathy without gangrene; E66.01 Morbid (severe) obesity due to excess calories; E78.5 Hyperlipidemia, unspecified; E89.0 Postprocedural hypothyroidism; F32.9 Major depressive disorder, single episode, unspecified; F41.9 Anxiety disorder, unspecified; G89.4 Chronic pain syndrome; E11.22 Type 2 diabetes mellitus with diabetic chronic kidney disease; N18.3 Chronic kidney disease, stage 3 (moderate); D50.0 Iron deficiency anemia secondary to blood loss (chronic); E87.5 Hyperkalemia; E83.51 Hypocalcemia; G47.33 Obstructive sleep apnea (adult) (pediatric); D72.829 Elevated white blood cell count, unspecified; K80.20 Calculus of gallbladder without cholecystitis without obstruction; B36.9 Superficial mycosis, unspecified; R13.10 Dysphagia, unspecified; Z91.040 Latex allergy status; Z88.2 Allergy status to sulfonamides; Z88.8 Allergy status to other drugs, medicaments and biological substances; Z91.018 Allergy to other foods; Z79.4 Long term (current) use of insulin; Z89.511 Acquired absence of right leg below knee; Z89.422 Acquired absence of other left toe(s); Z80.0 Family history of malignant neoplasm of digestive organs; Z87.440 Personal history of urinary (tract) infections; K59.09 Other constipation; Z79.82 Long term (current) use of aspirin; Z79.899 Other long term (current) drug therapy; Z95.820 Peripheral vascular angioplasty status with implants and grafts; R41.0 Disorientation, unspecified; K21.9 Gastro-esophageal reflux disease without esophagitis
CPT/HCPCS: 10081; 50010; 50101; 50386; 50403; 53353; 53354; 62110; 62900; 70005